=== PATIENT | male | born 1980 | race Caucasian/White ===

== ENCOUNTER 2023-01-12 12:08 | Outpatient (NON) | payer BC, SELFPAY | END 2023-01-12 12:09 | disposition home or self-care (01) | LOC: ANHLAB 01-13 12:10 | PROVIDERS: PCP Family Medicine; Visit Provider Nurse Practitioner | DX: D17.0 Benign lipomatous neoplasm of skin and subcutaneous tissue of head, face and neck (principal); L72.11 Pilar cyst | CPT/HCPCS: 88304 ==